=== PATIENT | male | born 1995 | race African-American/Black ===

== ENCOUNTER 2016-05-26 21:39 | Emergency (ER) | payer MEDICAID ==
[~2016-05-26] VITALS: Ht 190.5 cm; Wt 86.0 kg
[2016-05-26 23:46] VITALS: BP 118/81
== END 2016-05-26 23:53 | disposition home or self-care (01) ==
LOC: EMS 21:40
DX: L30.9 Dermatitis, unspecified (principal); K02.9 Dental caries, unspecified
CPT/HCPCS: 99283

== ENCOUNTER 2017-06-27 11:52 | Emergency (ER) | payer MEDICAID | END 2017-06-27 12:40 | disposition left against medical advice (07) | LOC: EMS 11:53 | DX: K08.89 Other specified disorders of teeth and supporting structures (principal); Z53.21 Procedure and treatment not carried out due to patient leaving prior to being seen by health care provider ==

== ENCOUNTER 2017-06-27 13:05 | Emergency (ER) | payer MEDICAID ==
[~2017-06-27] VITALS: Ht 190.5 cm; Wt 84.1 kg
[2017-06-27] MEDS ORDERED: HYDROCODONE/ACETAMINOPHEN 5-325 MG TABLET PO ONE (15:15)
[2017-06-27] MEDS ORDERED: AMOX TR/POT CLAV 875 MG/125 MG TABLET PO ONE (15:15)
[2017-06-27 16:09] VITALS: BP 140/80
== END 2017-06-27 16:09 | disposition home or self-care (01) ==
LOC: EMS 13:07
DX: K04.7 Periapical abscess without sinus (principal); K02.9 Dental caries, unspecified
CPT/HCPCS: 99283

== ENCOUNTER 2018-04-28 13:38 | Emergency (ER) | payer MEDICAID ==
[~2018-04-28] VITALS: Ht 190.5 cm; Wt 82.7 kg
[2018-04-28] MEDS ORDERED: BACITRACIN 0.9 GM PACKET OINTMENT TP ONE (14:30)
[2018-04-28] MEDS ORDERED: POVIDONE-IODINE 10% 15 ML SOLUTION UD TP ONE (14:30)
[2018-04-28] MEDS ORDERED: PERTUSS(ACELL),DIPH,TET VAC/PF 0.5 ML VIAL IM ONE (14:30)
[2018-04-28] MEDS ORDERED: IBUPROFEN 800 MG TABLET PO ONE (14:30)
[2018-04-28 15:10] VITALS: BP 117/78
== END 2018-04-28 15:10 | disposition home or self-care (01) ==
LOC: EMS 13:40
DX: S01.111A Laceration without foreign body of right eyelid and periocular area, initial encounter (principal); W22.8XXA Striking against or struck by other objects, initial encounter; Y93.89 Activity, other specified; Y92.89 Other specified places as the place of occurrence of the external cause; Y99.8 Other external cause status
CPT/HCPCS: 90471; 90715

== ENCOUNTER 2018-06-07 14:15 | Emergency (ER) | payer SELFPAY ==
[~2018-06-07] VITALS: Ht 190.5 cm; Wt 82.7 kg
[2018-06-07 16:35] VITALS: BP 117/89
== END 2018-06-07 16:47 | disposition home or self-care (01) ==
LOC: EMS 14:16
DX: K04.7 Periapical abscess without sinus (principal)

== ENCOUNTER 2019-05-27 14:29 | Emergency (ER) | payer SELFPAY ==
[~2019-05-27] VITALS: Ht 190.5 cm; Wt 81.8 kg
[2019-05-27 15:38] VITALS: BP 117/61
== END 2019-05-27 15:39 | disposition home or self-care (01) ==
LOC: EMS 14:31
DX: S50.311A Abrasion of right elbow, initial encounter (principal); L08.9 Local infection of the skin and subcutaneous tissue, unspecified; F17.210 Nicotine dependence, cigarettes, uncomplicated; X58.XXXA Exposure to other specified factors, initial encounter; Y93.89 Activity, other specified; Y92.89 Other specified places as the place of occurrence of the external cause; Y99.8 Other external cause status
CPT/HCPCS: 99406